=== PATIENT | female | born 1995 ===

== ENCOUNTER → 2025-03-01 09:00 | Outpatient (BNVA) | payer MEDICAID, SELFPAY | PROVIDERS: Visit Provider Obstetrics & Gynecology | DX: Z34.83 Encounter for supervision of other normal pregnancy, third trimester (principal) | CPT/HCPCS: 82950; 84315; 85025 ==

== ENCOUNTER → 2025-03-06 08:17 | Outpatient (BNVA) | payer MEDICAID, SELFPAY | PROVIDERS: Visit Provider Obstetrics & Gynecology | DX: O99.810 Abnormal glucose complicating pregnancy (principal) | CPT/HCPCS: 82951; 82952 ==

== ENCOUNTER → 2025-03-19 09:04 | Outpatient (BNVA) | payer MEDICAID, SELFPAY | PROVIDERS: Visit Provider Obstetrics & Gynecology | DX: Z34.83 Encounter for supervision of other normal pregnancy, third trimester (principal) | CPT/HCPCS: 84315 ==

== ENCOUNTER → 2025-04-02 09:13 | Outpatient (BNVA) | payer MEDICAID, SELFPAY | PROVIDERS: Visit Provider Obstetrics & Gynecology | DX: O24.419 Gestational diabetes mellitus in pregnancy, unspecified control (principal) | CPT/HCPCS: 84315; 87081 ==

== ENCOUNTER → 2025-04-09 09:18 | Outpatient (BNVA) | payer MEDICAID, SELFPAY | PROVIDERS: Visit Provider Obstetrics & Gynecology | DX: L29.9 Pruritus, unspecified (principal); Z3A.37 37 weeks gestation of pregnancy | CPT/HCPCS: 80053; 82542; 84315 ==

== ENCOUNTER 2025-04-17 19:57 | Inpatient (IN) | payer MEDICAID, SELFPAY ==
--- OUTSIDE RECORDS SUMMARY | 2025-02-21 07:14 | XMS_ITS | Continuity of Care Document ---
Author Organization [facility] Address [address] [place] [id number] Phone Care Team Providers Care Patient Care Assistant Name Role Phone Snapper [employer], Cher Unavailable Unavailable Allergies, Adverse Reactions, Alerts Substance Reaction Status Criticality No Known Allergies Active No Inform ation Medications Medication Instructions Dosage Effective Dates (start - stop) Status Comments aspirin 81 mg tablet,delayed release take 1 tablet by oral route every day 81 MG - Active Miralax 17 gram/dose oral powder take 17 milliliter by po route every day powder mixed with 8 oz. fluids 19.2667 G - Active Colace 100 mg capsule take 1 capsule by oral route every day at bedtime as needed 100 MG - Active + DHA 28 mg iron-975 mcg-200 mg oral pack on tab po qd - Active Procedures Procedure Date OFFICE/OUTPATIENT VISIT EST PT 20-29 MIN S URINALYSIS, AUTO, W/O SCOPE TEST BV Visit OFFICE/OUTPATIENT VISIT EST PT 20-29 MIN S BV Visit Limit Oral Exam $0.00 Lab Fee Dental Treatment Plan Complete OFFICE/OUTPATIENT VISIT EST PT 20-29 MIN S CHT-FOLLOW UP BV Visit FAMILY PLANNING ENCOUNTER Office O/P Est Minimal Problem (RN - 5+ Minutes) STREP A ASSAY W/OPTIC URINALYSIS, AUTO, W/O SCOPE TEST OFFICE VISIT NEW PT 30-44 MINS 25 Advance Directives Directive Yes / No Effective Date File Name No Information Encounters Encounter Description Practice Location Reason(s) For Visit Diagnoses Date Provider Providers Copied on Encounter [facility] [address] [place] [address], [id number] , [place] tel: [phone] [facility] No Information 5 Joseph Valentele. [address] [place], [place], [id number], [place]. tel:[phone] OFFICE/OUTPA TIENT VISIT EST PT 20-29 MINS [facility] [address] [place] [address], [id number] , [place] tel: [phone] [address] vaginal itching (chief complaint) Acute vaginitis 5 Bernice Daniel. [address] [place], [address], [place]. tel:[phone] Referring Provider: Dave Castillo, [address] [place] [address], [id number]. tel:[phone] BV Visit [facility] [address] [place] [address], [id number] , [place] tel: [phone] [facility] routine (chief complaint) Atypical squamous cells of undetermined significance on cytologic smear of cervix (ASC-US)Encounter for genetic screeningEncounter for supervision of other normal , second trimesterEncounter for supervision of other normal , first trimester 5 Sheryl Moctezuma. [address] [place] [address], [address], [place]. tel:[phone] Referring Provider: Rhianna Saucedo, [address] [place], [address]. tel:[phone] [facility] [address] [place] [address], [id number] , [place] tel: [phone] [facility] No Information Lv- 5 Erma Nava. [address] [place], [address], [place]. tel:[phone] OFFICE/OUTPA TIENT VISIT EST PT 20-29 MINS [facility] [address] [place] [address], [id number] , [place] tel: [phone] [facility] Follow Up of dizziness, BROWNING, cramping (chief complaint) DizzinessPelvic crampingEncounter for supervision of other normal , second trimesterEncounter for supervision of other normal , first trimesterAtypical squamous cells of undetermined significance on cytologic smear of cervix (ASC-US) 5 Brittnee Davis. [address], [place], [id number], [place]. tel:[phone] Referring Provider: Susan Beaulieu, [address] [place] [address], [id number] . tel:[phone] BV [facility] [address] [place] [address], [id number] , [place] tel: [phone] [facility] IOB 2 (chief complaint) Other obesityEncounter for genetic screeningAtypical squamous cells of undetermined significance on cytologic smear of cervix (ASC-US)Sickle cell traitGenetic carrierPelvic crampingDizzinessVa ginal dischargeEncounter for supervision of other normal , first trimesterRoutine Gynecological Exam w/ Previous Abnormal Findings 5 Brittnee Davis. [address], [place], [id number], [place]. tel:[phone] Referring Provider: Susan Beaulieu, [address] [place], [address] . tel:[phone] [facility] [address] [place] [address], [id number] , [place] tel: [phone] [address] [place] [address] Dental Encounter for screening for dental disordersEncounter for other general examination 5 Dutch Bateman. [address] [place], [place], [id number], [place]. tel:[phone] Referring Provider: Fransico Judd, [address] [place], [address] . tel:[phone] OFFICE/OUTPA TIENT VISIT EST PT 20-29 MINS [facility] [address] [place] [address], [id number] , [place] tel: [phone] [facility] Sangeetha results (chief complaint) Genetic carrierSickle cell trait 5 Joseph Kwon. [address] [place] [address], [id number], [place]. tel:[phone] Referring Provider: Cher Ruiz, [address] [place] [address], [id number] . tel:[phone] [facility] [address] [place] [address], [id number] , [place] tel: [phone] [facility] Problem related to social environment, unspecified 5 Justice Muse. [address] [place] [address], [address], [place]. tel:[phone] Referring Provider: Almaz Rendon, [address] [place] [address], [address]. tel:[phone] BV [facility] [address] [place] [address], [id number] , [place] tel: [phone] [facility] IOB (chief complaint) Encounter for supervision of other normal , first trimesterEncounter for genetic screeningOther obesity 5 Brittnee Davis. [address] [place] [address], [id number], [place]. tel:[phone] Referring Provider: Susan Beaulieu, [address] [place], [address] . tel:[phone] Office O/P Est Minimal Problem (RN - 5+ Minutes) [facility] [address] [place] [address], [id number] , [place] tel: [phone] [facility] intake (chief complaint) Family Planning (Shavon) (chief complaint) Encounter for supervision of other normal , first trimesterEncounter for genetic screeningProblem related to social environment, unspecifiedOther obesity Nick Milian. [address] [place] [address], [id number], . tel:[phone] OFFICE VISIT NEW PT 30-44 MINS [facility] [address] [place] [address], [id number] , tel: [phone] [facility] sore throat (chief complaint) Acute URIAmenorrhea Bernice Daniel. [address] [place] [address], [address], . tel:[phone] Referring Provider: Magali Rodriguez, [address] [place] [address], [address] . tel:[phone] Family History Family Member Type Diagnosis Age At Onset Father Problem Alive and well Brother Problem Alive and well Maternal grandmother Problem Diabetes mellitus Sister Problem Alive and well Mother Problem Alive and well Maternal grandmother Problem Alive and well Maternal grandfather Problem Cancer, lung Payers Payer name Insurance type Covered republican ID Authoriza avisdominguez(s) [facility] CI [id number] Social History Type Description Quantity Date Captured Comments Alcohol Use Details Unknown Caffeine Use Details Unknown Tobacco Use Status No Information Smoking Status No Information Sex Female Sexual Orientation Straight or heterosexual Gender Identity Female Chief Complaint And Reason For Visit No Information Reason For Referral Reason For Referral No Information Plan Of Treatment Date Type Action Status Goal Unhealthy drug use screening due Goal Hepatitis C scre ening. Due on due Goal Depression Scree gulshan. Due on due Goal Tobacco screening. Due on due Goal Hepatitis C scre ening. Due on due Goal Tobacco screening. Due on due Goal Unhealthy drug use screening due Goal Depression Scree gulshan. Due on due Goal Depression Scree gulshan. Due on due Goal Hepatitis C scre ening. Due on due Goal Tobacco screening. Due on due Goal Unhealthy drug use screening due Goal Tobacco screening. Due on due Goal Hepatitis C scre ening. Due on due Goal Depression Scree gulshan. Due on due Goal Unhealthy drug use screening due Goal Tobacco screening. Due on due Goal Depression Scree gulshan. Due on due Goal Unhealthy drug use screening due Goal Hepatitis C scre ening. Due on due Goal Depression Scree gulshan. Due on due Goal Tobacco screening. Due on due Goal Hepatitis C scre ening. Due on due Goal Pap/HPV testing. Due on due Goal Unhealthy drug use screening due Goal Tobacco screening. Due on due Goal Unhealthy drug use screening due Goal Depression Scree gulshan. Due on due Goal Hepatitis C scre ening. Due on due Goal Depression Scree gulshan. Due on due Goal Hepatitis C scre ening. Due on due Goal Tobacco screening. Due on due Goal Unhealthy drug use screening due Goal Tobacco screening. Due on due Goal Hepatitis C scre ening. Due on due Goal Depression Scree gulshan. Due on due Goal Unhealthy drug use screening due Goal Unhealthy drug u se screening. Due on due Goal Depression Scree gulshan. Due on due Goal Tobacco screening. Due on due Goal Tobacco screening. Due on due Goal Depression Scree gulshan. Due on due Goal Unhealthy drug u se screening. Due on due Goal Hepatitis C scre ening. Due on due Appointment Naima Stanley BOOKED Appointment Naima Stanley BOOKED Patient Education Colposcopy: Before Your Procedure completed Patient Education Hepatitis B Vaccine: Ca re Instructions completed Patient Education Hepatitis B Va ccine: What You Need to Know completed Patient Education Weeks 14 to 18 of Your : Care Instructions completed Patient Education Nutrition Duri ng : Care Instructions completed Patient Education During : Exerc ises completed Patient Education Weeks 10 to 14 of Your : Care Instructions completed Patient Education Exercise Durin g : Care Instructions completed Future Order: Lab Order Vaginiti s PCR Panel (Bacterial Vaginosis, Carlotta Spp,Trichomonas) ([id number]), Ordered on: Ordered Future Order: Lab Order Cervical Gonorrhea Probe ([id number]), Ordered on: Ordered Future Order: Lab Order Cervical Chlamydia Trac Probe ([id number]), Ordered on: Ordered Future Order: Lab Order US Enio cruz Follow Up ([id number]), Ordered on: Ordered History Of Present Illness Encounter Date Complaint History Of Prese nt Illness vaginal itching Her symptoms beg an 3 Days ago. The symptoms are reported as being mild. Presently the patient is experiencing vaginal itching, vaginal irritation and vaginal discharge. Color is white. Last menstrual period was 07/16/2024. Relevant factors include . Her symptoms are associated with vaginal burning, dysuria and vulvar itching but she denies fever, dyspareunia, urinary frequency, genital lesions, genital rash, genital ulcers, herpes genitalis or vulvar dystrophy. routine Follow Up of dizzine ss, BROWNING, cramping This visit was conducted via telehealth with the patient's consent. Patient is aware this is a billable visit. All relevant medical history, assessment, and treatment plan were discussed.length of visit = 4 minutesNaima is a 29yo with an TAYLOR of 04/30/25 by FTUSToday= 14wtaking PNV, ASAper pt, feeling much better after appointment last week.has not had any episodes of dizziness, BROWNING or cramping since last visitreports increasing water intake and eating more frequentlydenies any new complaints or concerns todayreviewed UC + vaginal cultures from last visit normal/negativepap PENDING IOB 2 pt stated having some strong cramps, sometimes unable to walk so much because becomes more painfulpt has also felt a lot of dizzinessNP note:Naima is a 29yo with an TAYLOR of 04/30/25 by FTUS here today for IOB IIToday 13'1taking PNVdiscussed recommendation to start ASA. pt agreeable. RX sentc/o dizziness, started last week, occurred 3 days, lasted for ~10 minutes each time. improved by taking deep breath, lying down. felt like room was spinning once other times felt lightheaded.c/o BROWNING, started with dizziness once a week, lasts ~1/2 hour. improved with waterdenies change in visionc/o cramps started a month ago, occurring 2-3 times a week, lasts for 2-3 days. tried tylenol once but does not want to take medication. bedrest improves symptomsdenies VB, dischargeconstipation improved - 2x/day (AM + PM)pt reports to drinking 4 cups of water a day, urine yellow in color. has not eaten yet today. admits to watching intake d/t weight. discussed her concerns and reviewed healthy nutrition in . add additional snack daily. encouraged to stay active, reports sister was on bedrest for most of her 4 pregnancies, unsure why. reviewed pt's A1c and current weight. discussed appropriate weight gain in ->recommended to double water intake daily (urine should be clear in color and pt should be going frequently), recommended to eat every 2-3 hours (reviewed carb+ protein), nutrition handout given and reviewed; consider nutrition consult. handout given and reviewed on exercises/stretches in ; consider referral to PT. warning signs given and reviewed, discussed when to call clinic vs [facility] eval. reviewed tylenol dosing for any pain. BROWNING, fever.vaginitis panel + GC/chlamydia collectedUA+UC orderedreviewed IOB labs. Hep B NI; recommended vaccine, pt refused vaccine until PP. varicella NI, vaccinate PPreviewed genetic screening CARRIER for polycystic kidney disease + sickle cell trait. partner rec'd link to complete testing. plans to do in next 2-3 weeks. offered genetic consult for couple at [facility], declined. admits to hx of abnormal pap. ?abnormal cells, unsure HPV; done in [place]. unsure of last. pap collected todayPE completedanatomy US ordered Sangeetha results This visit was c onducted via telehealth with the patient's consent. Patient is aware this is a billable visit. 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 Patient thinks her grandmother may have had PCKD. Patient thinks that FOB would be on board with carrier testing.FOB info:Lewis Hyatt, [birth year], [phone] [facility], [address] IOB Crampingwent to ER 08/29/2024 for spotting since then has stoppedNP Preethi is a 29yo with an TAYLOR of 04/30/25 by FTUS here today for IOB I with partnerToday 9w 1dtaking PNVunplanned , still surprised. reports moving from [place] to [place] in April to be closer to family. feels well supported. denies hx of anxiety/depression. services at [facility] reviewed, declined todayseen at [facility] ED 08/29 with VB + cramping. US showed no IUP, hCG = [address]25. pt denies any bleeding or spotting sincereviewed dating US done 09/18 showed SIUP measuring 8w 0d. small perigestational bleed notedmild cramping, worse at the end of the day. reports adequate water intake. + constipationRX for colace + miralax sent to pharmacy, increase water intake, do not strain or sit on toliet for extended timerecommended pelvic rest if having any bleeding/spotting/cramping. reviewed when to call vs going to [facility][] obesity - starting BMI =31.5[] SAB (2013)[] hx of STD - chlamydiareviewed genetic screening options with couple. NT scan orderedcfDNA w/FS (wants gender put in envelope) and carrier screen ordered to be drawn after 10/02IOB labs + PEC labs orderedNV: PE, pap, GC/chlamydia, review labs, discuss ASA Family Planning (Shavon) Interviewe d for Family Planning. The patient prefers not to discuss contraception today (I'm here for something else). The patient reports they or their partner are currently . At intake, the patient reported using no contraception (). intake Pt consented to TV PNI LMP: 07/16/23EDD: 04/30/25BMI: v/s to be done at IOBS/S include none; denies vaginal bleedingPMH: denies hx of depression, elevated BP, elevated glucose, neuro d/o or DVT. PSH: n/aPrior hospitalizations: noneOB Hx: -2013 SABGYN Hx: -hx of std includes Chlamydia -PAP: states no hx of abn and believes last was 03/2024FH: denies any genetic abnormalities on her or FOB, FOB cousin lupillo Best -does want genetic and cystic fibrosis screeningLewis Hyatt, [birth year]99, , [address] [facility] TampaMedications: PNVsAllergies: noneBH: PHQ2-0, GAD7-0, & UCFH60-1Hzpgnu: -unemployed -lives with cousins. Been with FOGail Saucedo for a year, feels safe and supported. -denies EtOH, tobacco, recreational drugs -exercise: sedentary -sleep: 8+ -dental referral made -PEDS-bvchcFlu shot NOT givenReviewed Covid vaccine recommendedZika screening completedLabs ordered and US completedWIC letter and Healthy Families [place] Referral-tasked CHTOB consent to be signed at IOBEducation verbally given on first trimester reviewed with patient understanding along with [facility], Ynes is C and IOB with Susan Beaulieu NP 09/26/24. sore throat Onset: 5 Days. T he severity of the problem is mild. The problem has not changed. Symptoms are associated with recent cold. Symptoms are not associated with dental infection, exposure to strep, history of asthma, recent travel and sick family member. Associated symptoms include chills/rigors, cough, fatigue, fever, headache, myalgia, pharyngitis, nausea and dizziness. Pertinent negatives include dyspnea, facial pain, hemoptysis, nasal congestion, otalgia, postnasal drainage, rash, rhinitis, sinus pressure, sputum, tooth pain or wheezing. Additional information: LMP: 07/21/24 not on bc. Functional Status Date Functional Assessmen t No Information Instructions Date Instruction Additional Infor ashleigh anatomy US scheduled 12/06/24 at 1030a Related to Encounter for supervision of other normal , second trimester continue to increase water intake -> urine should be cleareat every 2-3 hours; small frequent meals tend to be better than eating a heavier meal 3x/dayreviewed eating carb+ proteinencouraged to continue to start active- walking daily, stretchingFU as scheduled for MAXIMUS; sooner as needed Related to Dizziness influenza vaccine seat belt use domestic violence smoking counseling use of any medicatio ns (including supplements, vitamins, herbs, OTC drugs) illicit / recreational drugs alcohol tobacco (ask, advise , assess, assist and arrange) travel environmental / work hazards HIV and other routine t ests childbirth classes / hospital fa cilities toxoplasmosis precau tions (cats / raw meat) sexual activity exercise indications for ultrasound risk factors identif ied by history anticipated course of c are nutrition and weight gain counseling, special diet Assessments Type Assessment Date No Information Patient Care Teams Name Effective Dates (start - stop) Status Members No Information
[2025-04-17] VITALS (14 sets, daily range): BP systolic 124–142; BP diastolic 66–86; PULSE 83–94; O2SAT 100; BMI 35.3
--- NOTE | 2025-04-17 20:25 | PM.OBGYHP ---
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 Symptoms started 10 days ago and at office visit today her bile acids came back high and her LFTs. From [place] [facility], raised in [place], lives here now, Mom with her. FOB not involved. Review of Systems Narrative: Pertinent positives listed in HPI: Const: Denies: fever(s) or chills Card: Denies: chest pain, palpitations or syncope Resp: Denies: SOB, cough GI: Denies: abdominal pain, nausea or vomiting : Denies: flank pain, dysuria or urinary frequency Musc: Denies: back pain or extremity swelling Skin/Breast: Denies: rash, pruritus or breast pain Neuro: Denies: headache(s) or dizziness Psych: Denies: depression or mood swings Endo: Denies: polyuria, cold or heat intolerance Raymond/Lymph: Denies: easy bruising or easy bleeding Medications/Allergies Home Medications ?Medication ?Instructions ?Recorded ?Confirmed ?Last Taken ?Type docosahexaenoic acid 200 mg 200 mg PO DAILY 03/01/25 04/17/25 04/17/25 History capsule ( DHA) blood-glucose meter (Blood Glucose #1 ea 03/22/25 04/17/25 Unknown Rx Monitoring kit) Allergies Allergy/AdvReac Type Severity Reaction Status Date / Time No Known Allergies Allergy Verified 04/17/25 21:24 PFSH 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 PFSH: Medical History (Updated 04/17/25 @ 20:29 by Tamiko Bell MD) GBS (group B Streptococcus carrier), +RV culture, currently Diet controlled gestational diabetes mellitus (GDM) in third trimester No pertinent past medical history neghx: htn,thyroid,dvt/pe PCP: Deena Dukes Surgical History (Updated 04/17/25 @ 10:25 by Ilana Zimmer APN, HIPOLITO) No pertinent past surgical history Family History Grandmother Diabetes Stroke Social History Smoking and tobacco/nicotine status: never used tobacco/nicotine History History History 2 Term 0 0 Miscarriages/Ectopic 1 Living Children 0 Care TAYLOR Calculator Estimated Delivery Date Method Current WG Current Estimate 04/30/25 Ultrasound #1 38w 1d Other Estimates 04/22/25 LMP (Certain) 39w 2d Specific Issues/Plans CHOLESTASIS IN at 38 wks GDM - diet controlled GBS POSITIVE- no pcn allergy Physical Exam Narrative: Appearance: grossly normal Attitude: calm and engaged, appropriate eye contact Const: no acute distress, oriented x3 cooperative Chest: Symmetrical chest wall rise Resp: normal respiratory effort, clear to auscultation bilaterally Cardio: regular rate and regular rhythm GI: Soft to palpation, Non Tender, no Guarding, no masses : No Uterine tenderness, cervix normal appearing, vagina no masses, urethra normal cervix 1/thick/-2, vertex. Extremity: normal inspection, negative for no pedal edema Neuro: oriented x3 and moves all extremities, speech normal Psych: mental status grossly normal, and Normal thought process present Skin: no rashes or lesions noted Data 04/17/25 20:41 04/17/25 20:41 Results Labs OB ([facility]): Obstetrics US 04/09/25 Blood Type A Positive Today Antibody Screen Negative Today Hct, (36-47) 39.7 % Today Hgb, (11.27-16.99) 13.60 g/dL Today Rho(D) Type Rh positive Today Plt Count, (157-399) 174 10^3/cmm Today Glucose 1 Hr 50 gm, (85-140) 142 mg/dL H 03/01/25 Gest Glucose Tolerance mg/dL 03/06/25 A&P Assessment and plan 1. Cholestasis during in third trimester: CMP on admit, IOL, discussed consent, agrees. Great discussion and happy to be here. 2. Diet controlled gestational diabetes mellitus (GDM) in third trimester: 3. GBS (group B Streptococcus carrier), +RV culture, currently : PCN. PDMP PDMP Reviewed: Not Reviewed Attestations Medical Necessity Statement*: OB Coding Level of Care Code Acute Code for Chg Fwd Diagnoses Cholestasis during in third trimester O26.643 Diet controlled gestational diabetes mellitus (GDM) in third trimester O24.410 Gestational diabetes mellitus control: diet-controlled Trimester: third trimester GBS (group B Streptococcus carrier), +RV culture, currently O99.820
[2025-04-17 20:57] LABS: Hematocrit 39.7 % (36-47); Hemoglobin 13.60 g/dL (11.27-16.99); Mean Corpuscular HGB Conc 34.3 g/dL (30-55); Mean Corpuscular Hemoglobin 29.1 pg (27-33); Mean Corpuscular Volume 85.0 fl (85-98); Nucleated Red Blood Cells % 0 %; Platelet Count 174 10^3/cmm (157-399); Red Blood Count 4.67 10^6/uL (3.85-5.65); White Blood Count 9.28 10^3/uL (3.29-11.43)
[2025-04-17] MEDS: penicillin g potassium 5,000,000 UNIT in sodium chloride 0.9% (plus) 100 ML 100 UNIT IV (21:01)
--- NOTE | 2025-04-17 21:16 | PM.MISC ---
Miscellaneous Note Note: Cook balloon placed cvx /-2 vertex, tolerated well. PCN on board. Dr mars
[2025-04-17 21:18] LABS: Alanine Aminotransferase 147 U/L (0-33); Albumin Level 3.7 g/dL (3.5-5.2); Alkaline Phosphatase 507 U/L (35-105); Aspartate Amino Transferase 74 U/L (0-32); Blood Urea Nitrogen 10 mg/dL (6-20); Calcium 9.7 mg/dL (8.5-10.5); Carbon Dioxide 18 mmol/L (22-29); Chloride 105 mmol/L (98-107); Globulin 4.5 g/dL (1.3-4.6); Glucose 103 mg/dL (65-115); Osmolality Calculated 285 mOsm/kg (285-295); Sodium 138 mmol/L (136-145); Total Protein 8.2 g/dL (6.6-8.7)
[2025-04-17 21:20] LABS: Slide Review Slide Review Perform
[2025-04-17 21:26] LABS: Anion Gap 18.8 (5-19); Potassium 3.8 mmol/L (3.5-5.1)
[2025-04-17 23:36] LABS: PCP Screen Urine Negative (Negative)
[2025-04-17] MEDS: ROPivacaine premix 200 MG/100 ML PREMIX 10 MG EPIDURAL (23:39)
--- NOTE | 2025-04-17 23:42 | ANES.PREANE2 ---
Pre-Anesthetic Assessment Height/Weight: Height 1.5 m Weight 79.379 kg Pulse BP Pulse Ox O2 Del Method 88 135/76 100 Room Air 04/17/25 23:38 04/17/25 23:38 04/17/25 23:38 04/17/25 20:12 Preop Diagnosis: intrauterine labor epidural Familial anesthetic complications: none Was Beta Murray taken within 24 hours: N/A Was Clonidine taken within 24 hours: N/A Exam alert, oriented x 3 and clear to auscultation bilaterally Airway Mallampati: Class II Dentition: full History/ROS No significant history except as noted Pulmonary None reported CV/HEM None reported None reported Hepatic cholestasis during 3rd trimester GI None reported Metabolic GDM [facility] [place]/skel None reported Neuropsych None reported Anesthetic Plan ASA status: 3 Anesthesia: Anesthesia Evaluation and Regional (specify below) Risk of > 500 ml blood loss (7ml/kg in children): Yes, adequate IV access and fluids planned Medications/Allergies Home Medications ?Medication ?Instructions ?Recorded ?Confirmed ?Last Taken ?Type docosahexaenoic acid 200 mg 200 mg PO DAILY 03/01/25 04/17/25 04/17/25 History capsule ( DHA) blood-glucose meter (Blood Glucose #1 ea 03/22/25 04/17/25 Unknown Rx Monitoring kit) Allergies Allergy/AdvReac Type Severity Reaction Status Date / Time No Known Allergies Allergy Verified 04/17/25 21:24 Current Medications Generic Name Dose Route Start Last Admin Trade Name Freq PRN Reason Stop Dose Admin Dextrose/Lactated Ringer's 1,000 mls @ 125 mls/hr 04/17/25 20:15 04/17/25 22:51 Dextrose 5%-Lactated Ringers IV 0 mls/hr .Q8H ALIN Infusion Ropivacaine 200 mg in 100 mls @ 10 mls/hr 04/17/25 22:30 04/17/25 23:39 Naropin Premix EPIDURAL 10 mls/hr .Q10H ALIN Administration Sodium Chloride 1,000 mls @ 999 mls/hr 04/17/25 22:26 04/17/25 22:51 Sodium Chloride 0.9% IV 999 mls/hr .Q1H1M PRN Administration See label comments PFSH Anesthesia Medical History (Updated 04/17/25 @ 20:29 by Tamiko Bell MD) GBS (group B Streptococcus carrier), +RV culture, currently Diet controlled gestational diabetes mellitus (GDM) in third trimester No pertinent past medical history neghx: htn,thyroid,dvt/pe PCP: Deena Dukes Surgical History (Updated 04/17/25 @ 10:25 by Ilana Zimmer APN, [place]) No pertinent past surgical history Family History Grandmother Diabetes Stroke Social History Smoking and tobacco/nicotine status: never used tobacco/nicotine Female Reproductive History : 2 Data Anesthesia 04/17/25 20:41 04/17/25 20:41 Short CBC 04/17/25 Range/Units 20:41 WBC 9.28 (3.29-11.43) 10^3/uL Hgb 13.60 (11.27-16.99) g/dL Hct 39.7 (36-47) % MCV 85.0 (85-98) fl Plt Count 174 (157-399) 10^3/cmm Neut % (Auto) 67.2 % Neut # (Auto) 6.23 (1.8-7.7) 10^3/uL BMP 04/17/25 20:41 Sodium 138 Potassium 3.8 Chloride 105 Carbon Dioxide 18 L BUN 10 Creatinine 0.7 Glucose 103 Calcium 9.7 Liver Function 04/17/25 Range/Units 20:41 Total Bilirubin 0.5 (0.15-1.2) mg/dL AST 74 H (0-32) U/L ALT 147 H (0-33) U/L Alkaline Phosphatase 507 H (35-105) U/L Albumin 3.7 (3.5-5.2) g/dL Blood Bank 04/17/25 20:41 Blood Type A Positive Rho(D) Type Rh positive Antibody Screen Negative Anesthesia Procedures Epidural Time Out Performed: Yes Consents Signed: Procedure Consent Consent: requested by attending/covering physician, from patient, risks and benefits reviewed and patient agrees to proceed Lumbar Level: L4-L5 Epidural position: sitting Epidural procedure: sterile prep of area, 1% lidocaine to numb the area, 18 g needle, negative for paresthesia passed, neg for paresthesia, test dose given, 1.5% xylocaine 1:200k epi, 0.2% Ropivacaine bolus ml (5), placed PCEA, no systemic response, sterile dressing applied, L.U.D. no apparent complications and 0.2% Ropiavacaine @ mls/hr (10) Additional Comments: FIOR 5.5cm, catheter easily threaded to 5cm in the space. VS monitored throughout and remained stable. Pt educated on [employer]ES ENABLEMENT LEAD and reports adequate pain relief with epidural
[2025-04-18] VITALS (107 sets, daily range): BP systolic 105–174; BP diastolic 53–93; PULSE 68–107; TEMP 37.2–38.1; O2SAT 97–100
[2025-04-18] MEDS: oxytocin 30 UNIT/500 ML BAG IV (00:21)
[2025-04-18] MEDS: PENICILLIN G POTASSIUM 2,500,000 UNIT/50 ML BAG 50 UNIT IV ×5 (01:23→18:08)
[2025-04-18] MEDS: ROPivacaine premix 200 MG/100 ML PREMIX 11 MG EPIDURAL ×3 (04:54→21:09)
--- NOTE | 2025-04-18 04:57 | ANES.PROC ---
Anesthesia Procedures Procedure/Date: 04/18/25 Called by RN, Pt stating she is no longer comfortable with the epidural and she is feeling a hot spot in her right hip and groin. 100mcg Fentanyl via epidural and 3ml of 0.25% bupivacaine via epidural. Pt stating she is still hurting, all options discussed with patient and she would like to remove current epidural and replace with a new one. Epidural: Time Out Performed: Yes Consents Signed: Procedure Consent Consent: requested by attending/covering physician, from patient, risks and benefits reviewed and patient agrees to proceed Lumbar Level: L4-L5 Epidural position: sitting Epidural procedure: sterile prep of area, 1% lidocaine to numb the area, 18 g needle, negative for paresthesia passed, neg for paresthesia, test dose given, 1.5% xylocaine 1:200k epi, 0.2% Ropivacaine bolus ml (5), placed PCEA, no systemic response, sterile dressing applied, L.U.D. no apparent complications and 0.2% Ropiavacaine @ mls/hr (11) Additional Comments: FIOR 5.5cm, catheter easily threaded to 5cm in the space. VS monitored throughout and remained stable. Pt educated again on [employer] TECHNICIAN button and is reporting relief from contractions with epidural.
--- NOTE | 2025-04-18 08:53 | PM.MISC ---
Miscellaneous Note Note: Decreased pit to 8mU, cvx 5/60/-3, vertex. AROM clear fluid but a mec collection as formed BM. Will see contractions over 30 min then adjust pitocin accordingly. Comfortable with epidural. Had 2 variables, resolved with position change. Note is late entry from before 8am exam. Dr Bell
--- NOTE | 2025-04-18 17:25 | PM.MISC ---
Miscellaneous Note Note: cvx 5/70/-2, mid position vertex. IUPC placed, will try amnioinfusion. Decrease pitocin to 14. Dr Bell
[2025-04-18] MEDS: oxytocin 30 UNIT/500 ML BAG 24 UNIT IV (21:11)
[2025-04-19] VITALS (32 sets, daily range): BP systolic 100–163; BP diastolic 55–80; PULSE 70–129; RESP 15–17; TEMP 37–37.4; O2SAT 98–100
[2025-04-19] MEDS: PENICILLIN G POTASSIUM 2,500,000 UNIT/50 ML BAG 50 UNIT IV (00:03)
--- NOTE | 2025-04-19 01:14 | PM.MISC ---
Miscellaneous Note Note: Has been on abx due to GBS from admission. Had mild fever that was attributed to 4 heavy blankets and temp in room. However we are now failure to progress and called for tachycardia so increasing coverage to triple abx coverage. Had to call night pharmacy which is remote to try and override pyxis and do 5mg per kg gentamycin dosing. Proceed with PCS. Discussed full consent with patient. Pt is also counseled on risks of surgery including but not limited to: pain infection, bleeding, blood loss requiring transfusion, harm to internal organs requiring repair at the time of surgery, or subsequent surgical repair, from unforeseen complication. She is also counseled on increased risks of complication, injury, wound infection/separation or blood transfusion. She voices understanding. Dr mars
[2025-04-19] MEDS: citric acid-sodium citrate 30 mL UDC PO (01:20)
--- NOTE | 2025-04-19 01:20 | PM.OP ---
Operative Report Date of procedure: April 19, 2025 Surgeon: Tamiko Bell MD Procedure: Findings: vertex viable male, APGARS 9.9, weight pending Procedure Details: The risks, benefits, complications, treatment options, and expected outcomes were discussed with the patient.? The patient concurred with the proposed plan, giving informed consent.? The site of surgery properly noted. The patient was taken to the Operating Room , identified as [] and the procedure verified as Delivery. A Time Out was held and the above information confirmed. After induction of anesthesia, the patient was draped and prepped in the usual sterile manner. A Pfannenstiel incision was made and carried down through the subcutaneous tissue to the fascia. Fascia incision was made and extended transversely. The fascia was from the underlying rectus tissue superiorly and inferiorly. The peritoneum was identified and entered. Peritoneal incision was extended longitudinally. Zaki retractor placed. The vesicouterine peritoneum was identified and a low transverse uterine incision was made superior to this landmark. The baby was delivered from [] position. After the umbilical cord was clamped and cut cord blood was obtained for evaluation. The placenta was removed intact and appeared normal. The uterine outline, tubes and ovaries appeared normal. The uterine incision was closed with running locked sutures of 1-0 chromic. Hemostasis was observed. The peritoneum was closed with chromic and the fascia was then reapproximated with running sutures of 0 Vicryl. The skin was reapproximated with Insorb. Instrument, sponge, and needle counts were correct prior the abdominal closure and at the conclusion of the case. Cultures done and placenta to pathology. Estimated Blood Loss: ?600 mL Complications:none Disposition: recovery Condition: stable]
[2025-04-19 05:42] LABS: Hematocrit 29.0 % (36-47); Hemoglobin 9.90 g/dL (11.27-16.99); Mean Corpuscular HGB Conc 34.1 g/dL (30-55); Mean Corpuscular Hemoglobin 29.0 pg (27-33); Mean Corpuscular Volume 85.0 fl (85-98); Platelet Count 132 10^3/cmm (157-399); Red Blood Count 3.41 10^6/uL (3.85-5.65); White Blood Count 15.38 10^3/uL (3.29-11.43)
[2025-04-19] MEDS: ferrous sulfate EC 325 mg Tablet PO (10:21)
--- NOTE | 2025-04-19 12:12 | P.PN_ITS ---
Subjective 2 Subjective: Tired, POD#0. Lochia wnl, ambulating already, + BF. + catheter Vitals/I&O/Wt Last Vital Signs Temp 99.4 F 04/19/25 03:15 Pulse 75 04/19/25 09:49 Resp 15 04/19/25 02:35 BP 124/67 04/19/25 09:49 Pulse Ox 99 04/19/25 02:35 O2 Del Method Room Air 04/19/25 02:35 04/18/25 04/19/25 04/19/25 22:59 06:59 14:59 Intake Total 1807.800 / 2088.266 2062.5 / 4150.766 Output Total 450 / 450 1100 / 1550 850 / 850 Balance 1357.800 / 1638.266 962.5 / 2600.766 -850 / -850 Weight last 48 hrs Weight 175 lb Physical Exam 2 Narrative: Appearance: grossly normal Attitude: calm and engaged, appropriate eye contact Const: no acute distress, oriented x3 cooperative Chest: Symmetrical chest wall rise Resp: normal respiratory effort, clear to auscultation bilaterally Cardio: regular rate and regular rhythm GI: Soft to palpation, bandage dry, no Guarding, no masses Extremity: normal inspection, negative for no pedal edema Neuro: oriented x3 and moves all extremities, speech normal Psych: mental status grossly normal, and Normal thought process present Skin: no rashes or lesions noted Urinary Catheter Management: Orr Latex: Cath Placed During This Visit: yes Reason for Continuing Indwelling Catheter: Required Immobilization for Trauma or Surgery or Anesthesia Urinary Catheter Date of Insertion: 04/18/25 Urinary Catheter Time of Insertion: 00:15 Data 04/19/25 05:30 04/17/25 20:41 A&P Assessment and plan 1. delivery delivered: POD#0, routine pp care. 2. GBS (group B Streptococcus carrier), +RV culture, currently : 3. Cholestasis during in third trimester: Labs in am, trend LFTs. Delivered. 4. Diet controlled gestational diabetes mellitus (GDM) in third trimester: 6 weeks pp check up 5. Supervision of young multigravida, third trimester: 6. Maternal pyrexia during labor, delivered: Triple abx at delivery, resolved for now. PDMP PDMP Reviewed: Not Reviewed Attestations 2 Medical Necessity Statement*: OB, NA Coding Level of Care Code Acute Code for Chg Fwd Diagnoses delivery delivered O82 GBS (group B Streptococcus carrier), +RV culture, currently O99.820 Cholestasis during in third trimester O26.643 Diet controlled gestational diabetes mellitus (GDM) in third trimester O24.410 Gestational diabetes mellitus control: diet-controlled Trimester: third trimester Supervision of young multigravida, third trimester O09.623 Maternal pyrexia during labor, delivered O75.2
[2025-04-19] MEDS: HYDROcodone-acetaminophen 5-325 mg Tablet PO (15:02)
[2025-04-20] MEDS: PRENATAL VIT NO.130/IRON/FOLIC 1 EACH TABLET PO (04:31)
[2025-04-20 04:34] VITALS: BP 128/74; PULSE 86
[2025-04-20 05:05] LABS: Hematocrit 29.6 % (36-47); Hemoglobin 10.00 g/dL (11.27-16.99); Mean Corpuscular HGB Conc 33.8 g/dL (30-55); Mean Corpuscular Hemoglobin 29.2 pg (27-33); Mean Corpuscular Volume 86.5 fl (85-98); Nucleated Red Blood Cells % 0 %; Platelet Count 127 10^3/cmm (157-399); Red Blood Count 3.42 10^6/uL (3.85-5.65); White Blood Count 16.38 10^3/uL (3.29-11.43)
[2025-04-20 05:31] LABS: Alanine Aminotransferase 59 U/L (0-33); Albumin Level 2.7 g/dL (3.5-5.2); Alkaline Phosphatase 337 U/L (35-105); Anion Gap 12.3 (5-19); Aspartate Amino Transferase 36 U/L (0-32); Blood Urea Nitrogen 10 mg/dL (6-20); Calcium 8.5 mg/dL (8.5-10.5); Carbon Dioxide 21 mmol/L (22-29); Chloride 109 mmol/L (98-107); Globulin 3.2 g/dL (1.3-4.6); Glucose 79 mg/dL (65-115); Osmolality Calculated 284 mOsm/kg (285-295); Potassium 4.3 mmol/L (3.5-5.1); Sodium 138 mmol/L (136-145); Total Protein 5.9 g/dL (6.6-8.7)
[2025-04-20 05:45] LABS: Slide Review Slide Review Perform
[2025-04-20 09:37] VITALS: BP 133/75; PULSE 94
--- NOTE | 2025-04-20 09:47 | P.PN_ITS ---
Subjective 2 Subjective: Doing well, moving, voiding, + flatus. Lochia wnl. Pain controlled. Vitals/I&O/Wt Last Vital Signs Temp 99.4 F 04/19/25 03:15 Pulse 94 04/20/25 09:37 Resp 15 04/19/25 02:35 BP 133/75 04/20/25 09:37 Pulse Ox 99 04/19/25 02:35 O2 Del Method Room Air 04/19/25 02:35 Physical Exam 2 Narrative: Appearance: grossly normal Attitude: calm and engaged, appropriate eye contact Const: no acute distress, oriented x3 cooperative Chest: Symmetrical chest wall rise Resp: normal respiratory effort, clear to auscultation bilaterally Cardio: regular rate and regular rhythm GI: Soft to palpation, fundus firm incision c/D/I Extremity: normal inspection, +shins and pedal edema Neuro: oriented x3 and moves all extremities, speech normal Psych: mental status grossly normal, and Normal thought process present Skin: no rashes or lesions noted Urinary Catheter Management: Orr Latex: Cath Placed During This Visit: yes, but has since been removed by the nurse Reason for Continuing Indwelling Catheter: Decision to DC Catheter Urinary Catheter Date of Insertion: 04/18/25 Urinary Catheter Time of Insertion: 00:15 Date Urinary Catheter Removed: 04/19/25 Time Urinary Catheter Discontinued: 14:48 Data 04/20/25 04:40 04/20/25 04:40 Micro: Microbiology 04/19/25 01:35 Gram Stain - Final Placenta Maternal A&P Assessment and plan 1. delivery delivered: Progressing well, DC planning done and will DC tomorrow. Baby in nursery for grunting 2. Cholestasis during in third trimester: Labs decreased. sp delivery PDMP PDMP Reviewed: Not Reviewed Attestations 2 Medical Necessity Statement*: NA Coding Level of Care Code Acute Code for Chg Fwd Diagnoses delivery delivered O82 Cholestasis during in third trimester O26.643
[2025-04-20] MEDS: HYDROcodone-acetaminophen 5-325 mg Tablet PO ×2 (10:33→21:47)
[2025-04-20] MEDS: ferrous sulfate EC 325 mg Tablet PO (10:33)
[2025-04-20 15:55] VITALS: BP 131/73; PULSE 65
[2025-04-20 17:57] LABS: High Risk PP Hemorrhage BBK Notified
[2025-04-20 21:42] VITALS: TEMP 36.8
[2025-04-20 21:43] VITALS: BP 149/79; PULSE 65
[2025-04-21] MEDS: PRENATAL VIT NO.130/IRON/FOLIC 1 EACH TABLET PO (05:01)
[2025-04-21 05:02] VITALS: BP 146/85; PULSE 66
[2025-04-21] MEDS: HYDROcodone-acetaminophen 5-325 mg Tablet PO (05:42)
--- NOTE | 2025-04-21 10:10 | PM.OBGYDC ---
Discharge Providers BRICK OR BLOCK MAKER Date of Admission: 04/17/25 19:57 Date of Discharge: 04/21/25 Attending Provider at Admission: Tamiko Bell MD Attending Provider at Discharge: Tamiko Bell MD Primary Care Provider: Tamiko Bell MD Diagnoses at Discharge Discharge Diagnosis 1. delivery delivered: 2. Cholestasis during in third trimester: Reason for Visit Reason for Visit: IOL Hospital Course Hospital Course Admitted for IOL secondary to IHCP. She progressed to 6-6.5 cm and stalled. She was delivered by [facility] and given triple antibiotics due to fever and tachycardia. Mom progressed in diet, ambulation and pain control and was discharged home. See chart for details. Information Peripartum Data: Infant Delivery Method: Physical Exam Narrative: Appearance: grossly normal Attitude: calm and engaged, appropriate eye contact Const: no acute distress, oriented x3 cooperative Chest: Symmetrical chest wall rise Resp: normal respiratory effort, clear to auscultation bilaterally Cardio: regular rate and regular rhythm GI: Soft to palpation, fundus firm, incision c/d/i, no Guarding Extremity: normal inspection, + pedal edema Neuro: oriented x3 and moves all extremities, speech normal Psych: mental status grossly normal, and Normal thought process present Skin: no rashes or lesions noted Urinary Catheter Management: Orr Latex: Cath Placed During This Visit: yes, but has since been removed by the nurse Reason for Continuing Indwelling Catheter: Decision to DC Catheter Urinary Catheter Date of Insertion: 04/18/25 Urinary Catheter Time of Insertion: 00:15 Date Urinary Catheter Removed: 04/19/25 Time Urinary Catheter Discontinued: 14:48 History History History 2 Term 0 0 Miscarriages/Ectopic 1 Living Children 0 Discharge Data Studies Completed and Pending Pending at discharge Category Date Time Status Cord Arterial Blood Gas Stat Lab 04/19/25 01:30 Ordered Cord Venous Blood Gas Stat Lab 04/19/25 01:30 Ordered Tissue Culture and Gram Stain Stat Lab 04/19/25 01:35 Results Pathology: Surgical [PTH] Routine Pth 04/20/25 16:55 Received Laboratory Results WBC 16.38 10^3/uL (3.29-11.43) H 04/20/25 04:40 RBC 3.42 10^6/uL (3.85-5.65) L 04/20/25 04:40 Hgb 10.00 g/dL (11.27-16.99) L 04/20/25 04:40 Hct 29.6 % (36-47) L 04/20/25 04:40 MCV 86.5 fl (85-98) 04/20/25 04:40 MCH 29.2 pg (27-33) 04/20/25 04:40 MCHC 33.8 g/dL (30-55) 04/20/25 04:40 RDW 15.7 % (12.1-15.1) H 04/20/25 04:40 Plt Count 127 10^3/cmm (157-399) L 04/20/25 04:40 MPV 13.3 fL (7.4-10.4) H 04/20/25 04:40 Neut % (Auto) 80.6 % 04/20/25 04:40 Lymph % (Auto) 13.1 % 04/20/25 04:40 [place]arton % (Auto) 4.5 % 04/20/25 04:40 Eos % (Auto) 0.4 % 04/20/25 04:40 Baso % (Auto) 0.2 % 04/20/25 04:40 Neut # (Auto) 13.21 10^3/uL (1.8-7.7) H 04/20/25 04:40 Lymph # (Auto) 2.1 10^3/uL (0.8-4.8) 04/20/25 04:40 [place]arton # (Auto) 0.7 10^3/uL (0.2-0.9) 04/20/25 04:40 Eos # (Auto) 0.1 10^3/uL (0.0-0.8) 04/20/25 04:40 Baso # (Auto) 0.0 10^3/uL (0.0-0.1) 04/20/25 04:40 Nucleated RBC % (auto) 0 % 04/20/25 04:40 Nucleated RBCs # 0.0 /100WBC 04/20/25 04:40 Sodium 138 mmol/L (136-145) 04/20/25 04:40 Potassium 4.3 mmol/L (3.5-5.1) 04/20/25 04:40 Chloride 109 mmol/L (98-107) H 04/20/25 04:40 Carbon Dioxide 21 mmol/L (22-29) L 04/20/25 04:40 Anion Gap 12.3 (5-19) 04/20/25 04:40 BUN 10 mg/dL (6-20) 04/20/25 04:40 Creatinine 0.8 mg/dL (0.5-0.9) 04/20/25 04:40 GFR Calculation 84.8 mL/min (90-130) L 04/20/25 04:40 Glucose 79 mg/dL (65-115) 04/20/25 04:40 Calculated Osmolality 284 mOsm/kg (285-295) L 04/20/25 04:40 Calcium 8.5 mg/dL (8.5-10.5) 04/20/25 04:40 Total Bilirubin 0.3 mg/dL (0.15-1.2) 04/20/25 04:40 AST 36 U/L (0-32) H 04/20/25 04:40 ALT 59 U/L (0-33) H 04/20/25 04:40 Alkaline Phosphatase 337 U/L (35-105) H 04/20/25 04:40 Total Protein 5.9 g/dL (6.6-8.7) L 04/20/25 04:40 Albumin 2.7 g/dL (3.5-5.2) L 04/20/25 04:40 Globulin 3.2 g/dL (1.3-4.6) 04/20/25 04:40 Urine Opiates Screen Negative ng/mL (Negative) 04/17/25 21:23 Ur Barbiturates Screen Negative ng/mL (Negative) 04/17/25 21:23 Ur Phencyclidine Scrn Negative ng/mL (Negative) 04/17/25 21:23 Ur Amphetamines Screen Negative ng/mL (Negative) 04/17/25 21:23 U Benzodiazepines Scrn Negative ng/mL (Negative) 04/17/25 21:23 Urine Cocaine Screen Negative ng/mL (Negative) 04/17/25 21:23 U Marijuana (THC) Screen Negative ng/mL (Negative) 04/17/25 21:23 Blood Type A Positive 04/17/25 20:41 Rho(D) Type Rh positive 04/17/25 20:41 Antibody Screen Negative 04/17/25 20:41 Vitals Last Vital Signs Temp 98.3 F 04/20/25 21:42 Pulse 66 04/21/25 05:02 Resp 15 04/19/25 02:35 BP 146/85 04/21/25 05:02 Pulse Ox 99 04/19/25 02:35 O2 Del Method Room Air 04/19/25 02:35 Results Labs OB ([facility]): Obstetrics US 04/09/25 Blood Type A Positive 04/17/25 Antibody Screen Negative 04/17/25 Hct, (36-47) 29.6 % L 04/20/25 Hgb, (11.27-16.99) 10.00 g/dL L 04/20/25 Rho(D) Type Rh positive 04/17/25 Plt Count, (157-399) 127 10^3/cmm L 04/20/25 Glucose 1 Hr 50 gm, (85-140) 142 mg/dL H 03/01/25 Gest Glucose Tolerance mg/dL 03/06/25 Urine Opiates Screen, (Negative) Negative ng/mL 04/17/25 Ur Barbiturates Screen, (Negative) Negative ng/mL 04/17/25 Ur Phencyclidine Scrn, (Negative) Negative ng/mL 04/17/25 Ur Amphetamines Screen, (Negative) Negative ng/mL 04/17/25 U Benzodiazepines Scrn, (Negative) Negative ng/mL 04/17/25 Urine Cocaine Screen, (Negative) Negative ng/mL 04/17/25 U Marijuana (THC) Screen, (Negative) Negative ng/mL 04/17/25 Discharge Plan Discharge Patient Disposition: Home Condition: Stable Prescriptions: New hydrocodone-acetaminophen 5-325 mg Tablet 1 tab PO Q4H PRN (Reason: Moderate Pain) Qty: 20 0RF ibuprofen 800 mg Tablet 800 mg PO TID Qty: 30 0RF Continued DHA 200 mg capsule 200 mg PO DAILY Discontinued (DME) blood-glucose meter [Blood Glucose Monitoring] Kit See Rx Instructions .ROUTE .MEDSUPPLY Qty: 1 0RF Rx Instructions: include lancets, test strips, and alcohol swabs Discharge Order = DC NOW: Discharge Order (Routine); Ordered 04/21/25 Ordered By: Tamiko Bell Discharge Diet: Regular Discharge Activity: Increase activity as tolerated Patient Instructions: Depression (DC), Opioid Safety (DC), Preeclampsia and Eclampsia After Delivery (GEN), Hemorrhage (DC), OB Discharge Report, OB Food/Drug Interaction Guide, Opioid Safety, OB Home Care, OB Vaginal Deliveries - [facility], Patient Portal & Amy Instructions, Abnormal Bleeding Activity Restrictions/Additional Instructions: Pelvic rest x 6 wks Discharge Attestations BRICK OR BLOCK MAKER Time Spent in Discharge Care*: less than 30 min Coding Level of Care Code Acute Code for Chg Fwd Diagnoses delivery delivered O82 Cholestasis during in third trimester O26.643
[2025-04-21 10:11] VITALS: BP 125/78; PULSE 77
[2025-04-21 10:15] VITALS: RESP 16; TEMP 36.8
[2025-04-21 10:28] VITALS: BP 125/78; PULSE 77; RESP 16; TEMP 36.8
== END 2025-04-21 10:33 | disposition home or self-care (01) | DRG 540 ==
PROVIDERS: Admitting Provider Obstetrics & Gynecology; PCP Obstetrics & Gynecology; Visit Provider Obstetrics & Gynecology
PROC: 10D00Z1 Extraction of Products of Conception, Low, Open Approach (ICD-10-PCS; CPT 59514; principal; 2025-04-19 01:15)
DX: O75.2 Pyrexia during labor, not elsewhere classified (principal); O24.420 Gestational diabetes mellitus in childbirth, diet controlled; O99.62 Diseases of the digestive system complicating childbirth; K80.20 Calculus of gallbladder without cholecystitis without obstruction; O99.824 Streptococcus B carrier state complicating childbirth; O77.0 Labor and delivery complicated by meconium in amniotic fluid; O76 Abnormality in fetal heart rate and rhythm complicating labor and delivery; O62.0 Primary inadequate contractions; Z3A.38 38 weeks gestation of pregnancy; Z37.0 Single live birth
CPT/HCPCS: 36415; 51702; 59000; 59025; 59409; 80053; 80306; 84315; 85025; 85027; 86850; 86900; 87070; 87176; 87205; 88307; J1885; J2274; J2540; J2590; J2795; J3010; J3490; J7030; J7121; J9999